=== PATIENT | female | born 1985 | race Caucasian/White ===

== ENCOUNTER → 2016-08-17 | Outpatient (CLI) | payer BC ==
--- NOTE | 2016-08-17 11:04 | US ---
EXAMINATION TYPE: US thyroid st tissue head/neck DATE OF EXAM: 08/17/2016 COMPARISON: NONE CLINICAL HISTORY: E04.9 Goiter. Goiter, follow up thyroid nodules GLAND SIZE: Right Lobe: 4.8 x 1.3 x 1.6 cm Overall Parenchyma: homogenous Left Lobe: 4.7 x 1.5 x 1.5 cm Overall Parenchyma: homogeneous Isthmus Thickness: 0.3 cm NODULES RIGHT: # of nodules measured on right: 0 LEFT: # of nodules measured on left: 2 1. 0.4 X 0.3 x 0.3 cm hypoechoic complex nodule at the mid pole with well-defined margins; . This nodule is wider than tall and shows no intranodular vascularity. Prior size: 0.5 x 0.3 x 0.2 cm 2. 0.5 X 0.3 x 0.4 cm hypoechoic mixed nodule at the lower pole with well-defined margins; . This n odule is wider than tall and shows no intranodular vascularity. Prior size: 0.5 x 0.5 x 0.3 cm ISTHMUS: # of nodules measured in the isthmus: 0 Bilateral neck scanned, no evidence of lymphadenopathy. IMPRESSION: Stable nodules left thyroid
== END | disposition home or self-care (01) ==
LOC: RADUSWWP 10:25
PROVIDERS: ATTEND Family Medicine
DX: E04.2 Nontoxic multinodular goiter (principal)
CPT/HCPCS: 76536

== ENCOUNTER → 2017-10-07 | Outpatient (CLI) | payer BC ==
--- NOTE | 2017-10-07 09:46 | US ---
EXAMINATION TYPE: US thyroid st tissue head/neck DATE OF EXAM: 10/07/2017 COMPARISON: 08/17/2016, 01/13/2016 and 11/28/2013 CLINICAL HISTORY: E04.9 Nontoxic goiter unspecified. Follow up nodules. No thyroid medications. No biopsy. GLAND SIZE: Right Lobe: 4.5 x 1.6 x 1.5 cm Overall Parenchyma: homogenous Left Lobe: 4.4 x 1.7 x 1.2 cm Overall Parenchyma: homogeneous Isthmus Thickness: 0.3 cm NODULES RIGHT: # of nodules measured on right: 0 LEFT: # of nodules measured on left: 2 1. 0.4 X 0.3 x 0.3 cm hypoechoic mixed nodule at the mid pole with well-defined margins. This nodu le is taller than wide and shows no intranodular vascularity. Prior size: 0.4 x 0.3 x 0.3 cm 2. 0.5 X 0.5 x 0.3 cm cystic nodule at the lower pole with well-defined margins. This nodule is licha ler than wide and shows no intranodular vascularity. Prior size: 0.5 x 0.3 x 0.4 cm ISTHMUS: # of nodules measured in the isthmus: 0 Bilateral neck scanned, no evidence of lymphadenopathy. 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 No new nodule.
== END | disposition home or self-care (01) ==
LOC: RADUSWWP 08:16
PROVIDERS: ATTEND Family Medicine
DX: E04.2 Nontoxic multinodular goiter (principal)
CPT/HCPCS: 76536

== ENCOUNTER 2019-11-23 15:41 | Emergency (ER) | payer BC ==
[2019-11-23 16:00] VITALS: TEMP 97.9
--- NOTE | 2019-11-23 16:44 | ED ---
Abdominal Pain HPI - General Chief Complaint: Abdominal Pain Stated Complaint: Abdominal Pain Source: patient, RN notes reviewed, old records reviewed Mode of arrival: ambulatory Limitations: no limitations - History of Present Illness Initial Comments: This is a 34-year-old female DF for evaluation patient presents today for evaluation regards to severe suprapubic pain sudden onset of improved pain and made a contract, nauseous sweaty felt a little bit weak. Patient denies chance of (is a . No vaginal bleeding or bowel movement, no bowel bleeding, no recent illness or issues. She has had some occasional abdominal pain in the past but nothing significant. Patient denies chance of MD Complaint: abdominal pain, other (Suprapubic pain) -: hour(s) Location: suprapubic Radiation: suprapubic Migration to: suprapubic Severity: severe Severity scale (1-10): 8 Quality: stabbing, aching Consistency: intermittent, other (Although resolving she did take Motrin) Improves With: nothing Worsens With: nothing Associated Symptoms: nausea - Related Data Allergies Allergy/AdvReac Type Severity Reaction Status Date / Time Sulfa (Sulfonamide Allergy Rash/Hives Verified 11/23/19 16:01 Antibiotics) Review of Systems ROS Statement: Those systems with pertinent positive or pertinent negative responses have been documented in the HPI. ROS Other: All systems not noted in ROS Statement are negative. Past Medical History Past Medical History: Hypertension History of Any Multi-Drug Resistant Organisms: None Reported Past Surgical History: No Surgical Hx Reported Smoking Status: Current every day smoker Past Alcohol Use History: Occasional Past Drug Use History: None Reported General Exam Limitations: no limitations General appearance: alert, in no apparent distress Head exam: Present: atraumatic, normocephalic, normal inspection Eye exam: Present: normal appearance, PERRL, EOMI. Absent: scleral icterus, conjunctival injection, periorbital swelling ENT exam: Present: normal exam, mucous membranes moist Neck exam: Present: normal inspection. Absent: tenderness, meningismus, lymphadenopathy Respiratory exam: Present: normal lung sounds bilaterally. Absent: respiratory distress, wheezes, rales, rhonchi, stridor Cardiovascular Exam: Present: regular rate, normal rhythm, normal heart sounds. Absent: systolic murmur, diastolic murmur, rubs, gallop, clicks GI/Abdominal exam: Present: soft, normal bowel sounds. Absent: distended, tenderness, guarding, rebound, rigid Extremities exam: Present: normal inspection, full ROM, normal capillary refill. Absent: tenderness, pedal edema, joint swelling, calf tenderness Back exam: Present: normal inspection Neurological exam: Present: alert, oriented X3, CN II-XII intact Psychiatric exam: Present: normal affect, normal mood Skin exam: Present: warm, dry, intact, normal color. Absent: rash Course Vital Signs 11/23/19 15:55 Temperature 97.9 F Pulse Rate 85 Respiratory 18 Rate Blood Pressure 153/94 O2 Sat by Pulse 100 Oximetry - Reevaluation(s) Reevaluation #1: 11/23/19 17:19 Medical records reviewed Reevaluation #2: 11/23/19 18:17 Patient evaluated on recheck no pain Reevaluation #3: 11/23/19 18:18 Patient informed of results and questions answered Medical Decision Making - Medical Decision Making 34 female to the ER for valuation of abdominal pain suprapubic abdominal pain. Ultrasound is negative for any disease urine is negative hCG negative patient can be discharged home - Lab Data Lab Results 11/23/19 11/23/19 Range/Units 17:06 17:06 Urine Color Colorless Urine Appearance Clear (Clear) Urine pH 6.0 (5.0-8.0) Ur Specific [place] 1.004 (1.001-1.035) Urine Protein Negative (Negative) Urine Glucose (UA) Negative (Negative) Urine Ketones Negative (Negative) Urine Blood Negative (Negative) Urine Nitrite Negative (Negative) Urine Bilirubin Negative (Negative) Urine Urobilinogen <2.0 (<2.0) mg/dL Ur Leukocyte Esterase Negative (Negative) Urine HCG, Qual Not Detected (Not Detectd) - Radiology Data Radiology results: report reviewed (Ultrasound is negative for acute disease), image reviewed Disposition Clinical Impression: Abdominal pain, Pelvic pain Disposition: HOME SELF-CARE Condition: Good Instructions (If sedation given, give patient instructions): Pelvic Pain in Women (ED), Pelvic Pain (ED) Is patient prescribed a controlled substance at d/c from ED?: No Referrals: Kenny Gordillo DO [Primary Care Provider] - 1-2 days
[2019-11-23 17:27] LABS: Appearance,Urine Clear (Clear); Bilirubin,Urine Negative (Negative); Blood,Urine Negative (Negative); Color,Urine Colorless; Glucose,Urine (UA) Negative (Negative); Ketones,Urine Negative (Negative); Leukocyte Esterase,Urine Negative (Negative); Nitrite,Urine Negative (Negative); Protein,Urine Negative (Negative); Specific Gravity,Urine 1.004 (1.001-1.035); Urobilinogen,Urine <2.0 mg/dL (<2.0)
--- NOTE | 2019-11-23 17:57 | US ---
EXAMINATION TYPE: US transvaginal DATE OF EXAM: 11/23/2019 COMPARISON: NONE CLINICAL HISTORY: pain. Right pelvic pain x 1 day, 3, para 2, miscarriage 1, history of D&C TECHNIQUE: Transvaginal ER exam. Date of LMP: 1 to 2 weeks ago EXAM MEASUREMENTS: Uterus: 8.6 x 5.3 x 6.0 cm Endometrial Stripe: 1.1 cm Right Ovary: 2.4 x 1.7 x 2.1 cm Left Ovary: 4.7 x 1.8 x 1.8 cm 1. Uterus: retroverted, mildly heterogeneous 2. Endometrium: appears thickened for patient's LMP 3. Right Ovary: 1.8 x 1.0 x 1.4cm hypoechoic area, no torsion 4. Left Ovary: multiple follicles, no torsion 5. Bilateral Adnexa: wnl 6. Posterior cul-de-sac: free fluid IMPRESSION: No evidence of ovarian torsion. No adnexal mass. Normal uterus.
[2019-11-23 18:31] VITALS: BP 145/94; PULSE 89; RESP 16
== END 2019-11-23 18:33 | disposition home or self-care (01) ==
LOC: EC 15:41
DX: R10.2 Pelvic and perineal pain (principal); R11.0 Nausea; R10.30 Lower abdominal pain, unspecified; F17.200 Nicotine dependence, unspecified, uncomplicated; Z88.2 Allergy status to sulfonamides
CPT/HCPCS: 76830; 81003; 81025; 93975; 99284

== ENCOUNTER → 2019-12-22 | Outpatient (CLI) | payer BC ==
--- NOTE | 2019-12-22 12:06 | US ---
EXAMINATION TYPE: US thyroid st tissue head/neck DATE OF EXAM: 12/22/2019 COMPARISON: Thyroid ultrasound October 07, 2017 CLINICAL HISTORY: E04.9 nontoxic goiter. follow up exam, no changes in regards to thyroid from last y ear per patient GLAND SIZE: Right Lobe: 4.9 x 1.6 x 1.4 cm Overall Parenchyma: homogenous Left Lobe: 4.7 x 1.4 x 1.3 cm Overall Parenchyma: heterogeneous Isthmus Thickness: 0.2 cm NODULES RIGHT: # of nodules measured on right: 0 LEFT: # of nodules measured on left: 1, multiple cystic lesions under 0.5cm seen, measured larges t 1. 0.5 X 0.4 x 0.3 cm cystic nodule at the mid pole with irregular margins; present with microcalci fications. This nodule is wider than tall and shows no intranodular vascularity. Prior size: 0.4 x 0.2 x 0.2 cm ISTHMUS: # of nodules measured in the isthmus: 0 Bilateral neck scanned, no evidence of lymphadenopathy. Homogeneous normal-sized thyroid with stable 5 mm cystic nodule left thyroid lobe. IMPRESSION: As above. No new or enlarging greater than 1 cm nodules.
== END | disposition home or self-care (01) ==
LOC: RADUSWWP 07:42
PROVIDERS: ATTEND Family Medicine
DX: E04.9 Nontoxic goiter, unspecified (principal)
CPT/HCPCS: 76536

== ENCOUNTER → 2020-05-26 | Outpatient (CLI) | payer BC | END | disposition home or self-care (01) | LOC: LABMAIN 13:28 | PROVIDERS: ATTEND Physician Assistant | DX: Z20.822 Contact with and (suspected) exposure to COVID-19 (principal) | CPT/HCPCS: 87635 ==

== ENCOUNTER → 2020-06-28 | Outpatient (CLI) | payer BC ==
--- NOTE | 2020-06-30 10:34 | ECHOF ---
Referral Reason:R00.2 Palpitations MEASUREMENTS -------- HEIGHT: 160.0 cm WEIGHT: 90.7 kg BP: 138/77 RVIDd: 2.7 cm (< 3.3) IVSd: 1.2 cm (0.6 - 1.1) LVIDd: 3.7 cm (3.9 - 5.3) LVPWd: 1.2 cm (0.6 - 1.1) IVSs: 1.5 cm LVIDs: 2.6 cm LVPWs: 1.5 cm LA Diam: 2.9 cm (2.7 - 3.8) LAESV Index (A-L): 14.34 ml/m Ao Diam: 2.8 cm (2.0 - 3.7) AV Cusp: 2.0 cm (1.5 - 2.6) MV EXCURSION: 10.716 mm (> 18.000) MV EF SLOPE: 57 mm/s (70 - 150) EPSS: 0.7 cm MV E Javad: 0.97 m/s MV DecT: 205 ms MV A Javad: 0.71 m/s MV E/A Ratio: 1.36 FINDINGS -------- Sinus rhythm. This was a technically adequate study. The left ventricular size is normal. There is borderline concentric left ventricular hypertrophy. Overall left ventricular systolic function is normal with, an EF between 60 - 65 %. The right ventricle is normal in size. Normal LA size by volume 22+/-6 ml/m2. The right atrium is normal in size. Interatrial and interventricular septum intact. The aortic valve is trileaflet, and appears structurally normal. No aortic stenosis or regurgitation. The mitral valve is normal. Trace tricuspid regurgitation present. There is no pulmonic regurgitation present. The aortic root size is normal. Normal inferior vena cava with normal inspiratory collapse consistent with estimated right atrial pre ssure of 5 mmHg. There is no pericardial effusion. CONCLUSIONS -------- 1. The left ventricular size is normal. 2. There is borderline concentric left ventricular hypertrophy. 3. Overall left ventricular systolic function is normal with, an EF between 60 - 65 %. 4. The aortic valve is trileaflet, and appears structurally normal. No aortic stenosis or regurgitati on. 5. Trace tricuspid regurgitation present. 6. There is no pericardial effusion. [employer]ER: Renee Sullivan RDCS
== END | disposition home or self-care (01) ==
LOC: RADECHMAIN 13:54
PROVIDERS: ATTEND Family Medicine
DX: I07.1 Rheumatic tricuspid insufficiency (principal); I51.7 Cardiomegaly
CPT/HCPCS: 93306

== ENCOUNTER → 2022-12-04 | Outpatient (CLI) | payer BC ==
--- NOTE | 2022-12-04 13:54 | USB ---
Reason for Exam: Clinical finding. Patient History: Menarche at age 9. First Full-Term at age 21. Paternal grandmother had breast cancer. Risk Values: Marbella 5 year model risk: 0.5%. NCI Lifetime model risk: 9.9%. Technique: Method: Targeted. Findings: The lower section of the breast of the right breast, the axilla of the right breast and the retroareolar of the right breast were scanned. At the site of clinical concern which corresponds to the right 7:00 position there is a simple cyst noted to measure 6 x 5 mm. No solid masses are seen within the [id number].. Overall Assessment: Benign, BI-RAD 2 Management: Screening Mammogram of both breasts in 1 year. A clinical breast exam by your physician is recommended on an annual basis and results should be correlated with mammographic findings. This exam should not preclude additional follow-up of suspicious palpable abnormalities. Results were given to the patient verbally at the time of exam. Electronically signed and approved by: Clay Alan M.D. Radiologis
--- NOTE | 2022-12-04 14:27 | MM ---
Reason for Exam: Clinical finding. Indicated Problems: Lump or thickening of the right side for 2 Month(s). Patient History: Menarche at age 9. First Full-Term at age 21. Paternal grandmother had breast cancer. Last menstrual period: 12/04/2022 Risk Values: Marbella 5 year model risk: 0.5%. NCI Lifetime model risk: 9.9%. Tissue Density: The breast tissue is heterogeneously dense. This may lower the sensitivity of mammography. Findings: Analyzed By CAD. No evidence for distinct mass or distortion. No suspicious calcifications seen. Ultrasound recommended at the site of clinical concern. Overall Assessment: Incomplete: need additional imaging evaluation, BI-RAD 0 Management: Diagnostic Mammogram of the right breast. . Results were given to the patient verbally at the time of exam. Patient should continue monthly self-breast exams. A clinical breast exam by your physician is recommended on an annual basis. This exam should not preclude additional follow-up of suspicious palpable abnormalities. Note on Marbella scores and lifetime risk: 1. A Marbella score greater than 3% is considered moderate risk. If this is the case, consider specialist referral to assess eligibility for a risk reducing agent. 2. If overall lifetime risk for the development of breast cancer is 20% or higher, the patient may qualify for future screening with alternating mammogram and breast MRI. Electronically signed and approved by: Clay Alan M.D. Radiologis
== END | disposition home or self-care (01) ==
LOC: RADMAMWWP 12:54
PROVIDERS: ATTEND Family Medicine
DX: N60.01 Solitary cyst of right breast (principal); R92.333 Mammographic heterogeneous density, bilateral breasts; Z80.3 Family history of malignant neoplasm of breast
CPT/HCPCS: 77062; 77066

== ENCOUNTER → 2022-12-04 | Outpatient (CLI) | payer BC ==
--- NOTE | 2022-12-04 14:54 | US ---
EXAMINATION TYPE: US thyroid st tissue head/neck DATE OF EXAM: 12/04/2022 COMPARISON: 02/28/2021 CLINICAL INDICATION: Female, 37 years old with history of E04.9 GOITER; Goiter GLAND SIZE: Right Lobe: 4.7 x 1.4 x 1.7 cm Overall Parenchyma: homogenous Left Lobe: 4.9 x 1.4 x 1.6 cm Overall Parenchyma: homogeneous Isthmus Thickness: 0.2 cm NODULES RIGHT: # of nodules measured on right: 0 LEFT: # of nodules measured on left: 1 - multiple cystic lesions under 0.5cm seen, largest measur ed 1. 0.5 X 0.3 x 0.4 cm, mid lateral, cystic or almost completely cystic, anechoic nodule, which is w ider than tall, with smooth margins, with echogenic foci. Prior size: 0.5 x 0.4 x 0.4 cm ISTHMUS: # of nodules measured in the isthmus: 0 Bilateral neck scanned, no evidence of lymphadenopathy. IMPRESSION: Stable examination. No new or enlarging nodules greater than 1 cm.
== END | disposition home or self-care (01) ==
LOC: RADUSWWP 12:47
PROVIDERS: ATTEND Family Medicine
DX: E04.9 Nontoxic goiter, unspecified (principal)
CPT/HCPCS: 76536

== ENCOUNTER → 2023-10-27 | Outpatient (CLI) | payer BC ==
[2023-10-27 15:30] LABS: Basophils # (A) 0.03 X 10*3/uL (0.00-0.10); Basophils % (A) 0.5 %; Eosinophils # (A) 0.12 X 10*3/uL (0.04-0.35); HCT 41.3 % (37.2-46.3); HGB 13.6 g/dL (12.0-15.0); Lymphocytes # (A) 1.99 X 10*3/uL (0.90-5.00); Lymphocytes % (A) 32.7 %; MCH 28.6 pg (27.0-32.0); MCHC 32.9 g/dL (32.0-37.0); MCV 86.8 FL (80.0-97.0); Mean Platelet Volume 11.9 FL (9.5-12.2); Monocytes # (A) 0.38 X 10*3/uL (0.20-1.00); Monocytes % (A) 6.3 %; NRBC Per 100 WBC 0 X 10*3/uL (0.00-0.01); Neutrophils # (A) 3.54 X 10*3/uL (1.80-7.70); Neutrophils % (A) 58.2 %; Platelet Count 198 X 10*3/uL (140-440); RBC 4.76 X 10*6/uL (4.10-5.20); RDW 13.5 % (11.5-14.5); WBC 6.08 X 10*3/uL (4.50-10.00)
== END | disposition home or self-care (01) ==
LOC: LABWHC1 07:36
PROVIDERS: ATTEND Obstetrics & Gynecology
DX: Z01.818 Encounter for other preprocedural examination
CPT/HCPCS: 36415; 85025

== ENCOUNTER → 2023-10-29 | Day surgery (SDC) | payer BC ==
--- NOTE | 2023-10-28 20:28 | HP ---
HISTORY AND PHYSICAL DATE OF SURGERY: 10/29/2023 HISTORY OF PRESENT ILLNESS: Kandy is a 38-year-old 3, para 2-0-1-2, who presents to the office at a routine annual examination complaining of significantly increasing and heavy clotty periods that are lasting for 7 days. She does occasionally bleed through protection and is interested in options for treatment. Her partner has a vasectomy. She was initially given a trial of meclofenamate as she is heterozygous for Factor 5 Leiden and not a candidate for Lysteda. After a couple of months, she reported that she had no improvement in her cycles or bleeding pattern and requested definitive therapy with endometrial ablation. She therefore has been scheduled for diagnostic hysteroscopy with NovaSure endometrial ablation. PAST MEDICAL HISTORY: Significant for heterozygous Factor 5 Leiden and also hypertension. PAST SURGICAL HISTORY: Significant for breast biopsy. She had a D and C for missed . There were no anesthetic concerns. OBSTETRICAL HISTORY: 3, para 2-0-1-2 with 2 term vaginal deliveries and 1 early miscarriage requiring D and C. Current method of contraception is vasectomy. Gynecologic history is unremarkable with no history of any infections to include STDs. FAMILY HISTORY: Noncontributory. SOCIAL HISTORY: The patient is and works as a loan supervisor at [employer]. She is a nonsmoker, although she has a history of smoking in the past. She reports occasional alcohol and no other social concerns. CURRENT MEDICATIONS: Include, 1. Losartan 50 mg daily. 2. Omeprazole 20 mg daily. 3. Vitamin D daily. 4. Vitamin B12 daily. 5. Xanax 0.25 t.i.d. p.r.n. ALLERGIES: To sulfa, which causes a rash. REVIEW OF SYSTEMS: Confined to history of present illness. PHYSICAL EXAMINATION: VITAL SIGNS: Stable. The patient is afebrile. GENERAL: This is a well-developed well-nourished white female in no acute distress. HEART: Has regular rhythm and rate without murmur. LUNGS: Clear to auscultation bilaterally in all orosco. ABDOMEN: Nondistended, has normoactive bowel sounds, soft, nontender, without any palpable masses, hepatosplenomegaly, or hernias. EXTREMITIES: Without any cyanosis, clubbing, or edema and are nontender to palpation bilaterally. PELVIC: Demonstrates normal external genitalia and BUS with normal vaginal mucosa and cervix. There is no cervical motion tenderness. The uterus is 5 weeks in size, retroverted, mobile, nontender, normal in shape. The adnexa are normal and nontender without any apparent masses bilaterally. ASSESSMENT AND PLAN: Menorrhagia: We discussed options for treatment. She is not a good candidate for estrogen-containing medications and is not in need of contraception. She failed meclofenamate sodium. She has requested diagnostic hysteroscopy with NovaSure endometrial ablation. The risks and complications of the procedure were thoroughly discussed including the risks for bleeding, bleeding requiring transfusion, infection, and injury to local structures to specifically include uterine perforation, Asherman syndrome, and potentially hematometra. She has understood all of this and has agreed to proceed. We are scheduled for the procedures as outlined above on the morning of 10/29/2023. MMCLAUDIAL / IJN: [id number] /
[~2023-10-29] MED LIST: ACETAMINOPHEN TAB 325 MG TAB PO PRN; Acetaminophen-Codeine 300-30mg TAB PO PRN; IBUPROFEN 600 MG TAB PO PRN; LACTATED RINGERS 1,000 ML IV SCH; LIDOCAINE 1% (10MG/ML) FOR IV START INTRADERMA PRN; LIDOCAINE 1% INJ 10MG/ML (20 ML MDV) ONE; METOCLOPRAMIDE 5 MG/ML 2 ML VIAL IVP PRN; MIDAZOLAM 2 MG/2 ML VIAL IV PRN; MIDAZOLAM 2 MG/2 ML VIAL ONE; PHENYLEPHRINE 10 MG/ML VIAL ONE; PROPOFOL 10 MG/ML 20 ML VIAL IV ONE; Pre Op ABX Message 1 EACH MISC MISCELLANE ONE; SIMETHICONE 80 MG CHEWABLE PO PRN; diphenhydrAMINE 50 MG/ML 1 ML VIAL IVP PRN; fentaNYL (PF) 50 MCG/ML 2 ML AMP IV PRN; fentaNYL (PF) 50 MCG/ML 2 ML AMP ONE
[2023-10-29] MEDS: LACTATED RINGERS 1,000 ML IV SCH (08:01)
[2023-10-29] MEDS: IV FLUID CONTINUATION 1,000 ML IV ONE (08:01)
[2023-10-29] MEDS: ONDANSETRON 4 MG/2 ML VIAL IVP ONE (08:05)
[2023-10-29] MEDS: DEXAMETHASONE SOD PHOSPHATE 4 MG/ML 1 ML VIAL IV ONE (08:06)
[2023-10-29] MEDS: LACTATED RINGERS 1,000 ML IV ONE (09:14)
[2023-10-29 09:38] VITALS: TEMP 97
[2023-10-29] MEDS: KETOROLAC 15 MG/ML 1 ML VIAL IVP PRN (09:39)
--- NOTE | 2023-10-29 09:40 | P.OP ---
Date of Procedure: 10/29/23 Preoperative Diagnosis: #1. Menorrhagia Postoperative Diagnosis: Same Procedure(s) Performed: #1. Diagnostic hysteroscopy #2. Dilation and curettage #3. NovaSure endometrial ablation Anesthesia: other (General By LMA) Surgeon: Peter Stringer Estimated Blood Loss (ml): 5 IV fluids (ml): 800 Urine output (ml): 40 Pathology: other (Endometrial curettings) Condition: stable Disposition: PACU Operative Findings: Preoperative pelvic examination demonstrated roughly 5-week retroverted mobile normal shaped uterus with normal adnexa bilaterally. Intraoperatively, the uterus sounded to approximately 9 cm with a cervical length of approximately 3.5 cm. Using the hysteroscope, the bilateral tubal ostia were seen but there was a fair amount of shaggy endometrial tissue primarily emanating from the posterior aspect of the uterine cavity prompting endometrial curettage with the contents sent to pathology for diagnoses. The settings for the NovaSure to over a length of 5.5 cm, a width of 4.4 cm for a total power of 133 W. After a total run time of 84 seconds, the base unit read "procedure complete." The postprocedural result appeared to be excellent. The patient is a potential candidate for vaginal hysterectomy should it become necessary in the near future. Description of Procedure: The patient was prepped and draped in usual fashion after general anesthesia was administered by the anesthesiologist. A weighted speculum was placed and the bladder was drained of approximately 40 mL of clear fartun urine. A single-tooth tenaculum was attached to the anterior lip of the cervix and uterus sounded to 9 cm with a rough cervical length of approximately 3.5 cm. Serial dilation was carried out to admit the diagnostic hysteroscope which was placed into the cavity and the cavity distended with saline. The findings are as noted above with the bilateral tubal ostia seen and a fair amount of shaggy tissue noted across the entire posterior wall of the uterus. As a result, the scope was set aside and sharp curettage carried out delivering the tissue onto a Telfa placed in the vagina with a moderate amount of tissue returned. This was sent for pathological diagnoses. After curettage was carried out, the NovaSure tool was inserted into the endometrial cavity with the settings for length of 5.5 cm and opened to a width of 4.4 cm creating a total power of 133 W. The cavity check was attempted and passed without difficulty. The tool was enabled and the run was started. After total run time of 84 seconds, the base unit disengaged and read "procedure complete." The 2 was closed, removed, and discarded and the diagnostic hysteroscope replaced with result appearing excellent. All instrumentation was then removed. There was no ongoing bleeding from either the cervix or from the tenaculum site. Estimated blood loss was 5 mL or less. There were no complications. All sponge, instrument, and needle counts were correct. The patient tolerated the procedure well and proceeded to the recovery room in stable condition.
[2023-10-29] MEDS: HYDROmorphone 0.5 MG/0.5 ML SYRINGE IVP PRN (09:42)
[2023-10-29 10:12] VITALS: RESP 16
[2023-10-29 10:39] VITALS: PULSE 71
[2023-10-29] MEDS: ONDANSETRON 4 MG/2 ML VIAL IVP PRN (10:58)
[2023-10-29 11:08] VITALS: BP 117/76
== END | disposition home or self-care (01) ==
LOC: OR 07:16
PROVIDERS: ATTEND Obstetrics & Gynecology
DX: N92.0 Excessive and frequent menstruation with regular cycle (principal); I10 Essential (primary) hypertension; D68.51 Activated protein C resistance; K21.9 Gastro-esophageal reflux disease without esophagitis; F41.9 Anxiety disorder, unspecified; Z79.899 Other long term (current) drug therapy; Z87.891 Personal history of nicotine dependence; Z87.59 Personal history of other complications of pregnancy, childbirth and the puerperium; N96 Recurrent pregnancy loss; Z88.2 Allergy status to sulfonamides
CPT/HCPCS: 81025; 88305

== ENCOUNTER → 2023-12-02 | Outpatient (CLI) | payer BC ==
--- NOTE | 2023-12-02 15:35 | US ---
EXAMINATION TYPE: US thyroid st tissue head/neck DATE OF EXAM: 12/02/2023 COMPARISON: Multiple, most recent 12/04/2022 CLINICAL INDICATION: Female, 38 years old with history of E04.9 THYROID NODULE; Patient denies any si gns, symptoms, or relevant history TECHNIQUE: Grayscale and color Doppler imaging of the thyroid gland. FINDINGS: GLAND SIZE: Right Lobe: 4.9 x 1.3 x 1.5 cm Overall Parenchyma: homogeneous Left Lobe: 4.9 x 1.1 x 1.6 cm Overall Parenchyma: homogeneous Isthmus Thickness: 0.3 cm NODULES RIGHT: # of nodules measured on right: 0 LEFT: # of nodules measured on left: 3 1. 0.6 X 0.5 x 0.4 cm, upper lateral, solid or almost completely solid, hypoechoic nodule, which is taller than wide, with smooth margins, without echogenic foci. TR 4. Prior size: not seen on prior 2. 0.5 X 0.4 x 0.4 cm, mid lateral, solid or almost completely solid, hypoechoic nodule, which is Circular, with smooth margins, with echogenic foci. TR 4. Prior size: 0.5 x 0.3 x 0.4 cm 3. 0.5 X 0.3 x 0.3 cm, lower lateral, solid or almost completely solid, hypoechoic nodule, which is Circular, with smooth margins, without echogenic foci. TR 4. Prior size: 0.6 x 0.3 x 0.3 cm ISTHMUS: # of nodules measured in the isthmus: 0 Bilateral neck scanned, no evidence of lymphadenopathy. IMPRESSION: Redemonstration of a few left thyroid lobe subcentimeter nodules with new TR 4 subcentimeter left thy roid lobe nodule. Follow-up ultrasound in one year is recommended. [facility], , 12/02/2023 3:33 PM
== END | disposition home or self-care (01) ==
LOC: RADUSWWP 15:08
PROVIDERS: ATTEND Family Medicine
DX: E04.2 Nontoxic multinodular goiter (principal)
CPT/HCPCS: 76536